=== PATIENT | male | born 1950 | race Caucasian/White ===

== ENCOUNTER 2022-10-26 10:25 | Emergency (ER) | payer OTHER, SELFPAY ==
[2022-10-26 10:45] VITALS: BP 119/78; PULSE 56; RESP 16; TEMP 36.4; O2SAT 99
[2022-10-26 10:46] VITALS: BP 119/78; PULSE 56; O2SAT 99
[2022-10-26 10:47] VITALS: RESP 16; TEMP 36.4
--- NOTE | 2022-10-26 11:03 | ED.MALEGU ---
HPI - Male Genitourinary General Chief complaint: Urogenital-Male Stated complaint: urinary issue Time Seen by Provider: 10/26/22 10:52 Source: patient and RN notes reviewed Mode of arrival: ambulatory Limitations: no limitations History of Present Illness HPI Narrative: Patient presents today complaining of hematuria, dysuria, and urinary urgency since this morning. He did have 1 episode of urinary incontinence when he did not make it to the restroom. Denies abdominal pain, frequency. He has tried no medication for symptoms prior to arrival. Related Data Home Medications Medication Instructions Recorded Confirmed levothyroxine 50 mcg capsule 50 mcg PO DAILY 07/31/21 07/23/22 omeprazole 20 mg capsule,delayed 20 mg PO DAILY 07/31/21 07/23/22 release simvastatin 20 mg tablet 20 mg PO DAILY 07/31/21 07/23/22 tamsulosin 0.4 mg capsule 0.4 mg PO DAILY 07/31/21 07/23/22 Allergies Allergy/AdvReac Type Severity Reaction Status Date / Time tetracycline Allergy Unknown Verified 10/26/22 10:46 erythromycin base AdvReac Unknown Unknown Verified 10/26/22 10:46 Strawberries AdvReac Unknown Unknown Uncoded 10/26/22 10:46 Review of Systems Review of Systems: CONSTITUTIONAL: Denies body aches, fever, chills, or sweats. EYES: Denies visual changes, redness, or discharge. ENT: Denies rhinorrhea, congestion, sore throat, or otalgia. CARDIOVASCULAR: Denies chest pain, palpitations, or edema. RESPIRATORY: Denies cough or dyspnea. GASTROINTESTINAL: Denies abdominal pain, nausea, vomiting, or diarrhea. GENITOURINARY: + dysuria, hematuria, urgency SKIN: Denies rash, itching, or wounds. MUSCULOSKELETAL: Denies back pain, joint pain, or myalgia. NEUROLOGIC: Denies headache, numbness, tingling, or weakness. PSYCH: Denies depression or anxiety. [facility], [facility] Social History Social History Smoking status: Never smoker Comments At time of signature, I have reviewed and agree with nursing past medical, surgical, social and family history unless otherwise noted. Please see nursing chart for further information. There is no relevant family history pertinent to the presenting complaint Exam Narrative: GENERAL: Well-appearing, well-nourished, and in no acute distress. HEAD: Normocephalic, atraumatic. EYES: EOMI. No redness or drainage. Conjunctivae normal. ENT: Mucous membranes pink and moist. NECK: Normal AROM. CHEST: No respiratory distress. EXTREMITIES: Normal range of motion. No edema. SKIN: Warm, dry, no rash. Capillary refill normal. Normal skin turgor. NEURO: No focal deficits. Alert and oriented x3. Gait steady. PSYCH: Normal affect. No signs of depression or anxiety. Course Course Level of Care: Express Care Visit Vital Signs Vital signs: Vital Signs Temperature 97.5 F L 10/26/22 10:45 Pulse Rate 56 L 10/26/22 10:45 Respiratory Rate 16 10/26/22 10:45 Blood Pressure 119/78 10/26/22 10:45 Pulse Oximetry 99 10/26/22 10:45 Oxygen Delivery Room Air 10/26/22 10:45 Temperature 97.5 F L 10/26/22 10:47 Pulse Rate 56 L 10/26/22 10:46 Respiratory Rate 16 10/26/22 10:47 Blood Pressure 119/78 10/26/22 10:46 Pulse Oximetry 99 10/26/22 10:46 Oxygen Delivery Room Air 10/26/22 10:46 Reviewed MDM - Male Genitourinary MDM Narrative Medical decision making narrative: HPI and urinalysis are consistent with UTI. Will treat with course of Keflex. Anticipatory guidance given. Differential Diagnosis Differential diagnosis: Likely urinary tract infection, urethritis and prostatitis Lab Data Attestation: I reviewed the patient's lab results. Labs: Urine Glucose Negative Reference Range: Negative Urine Bilirubin Negative Reference Range: Negative Urine Ketone Negative
== END 2022-10-26 11:11 | disposition home or self-care (01) ==
PROVIDERS: Emergency Provider Nurse Practitioner; PCP Internal Medicine
DX: N30.01 Acute cystitis with hematuria (principal); E78.00 Pure hypercholesterolemia, unspecified; E03.9 Hypothyroidism, unspecified
CPT/HCPCS: 81003; 87086; 99213; G0463